=== PATIENT | male | born 1970 | race Caucasian/White ===

== ENCOUNTER 2016-12-17 08:27 | Emergency (ER) | payer SELFPAY ==
[2016-12-17 08:31] VITALS: BP 143/83; PULSE 75; RESP 20; TEMP 96.8
[2016-12-17] MEDS ORDERED: SODIUM CHLORIDE 0.9% 1,000 ML IV STA (08:35)
[2016-12-17] MEDS ORDERED: KETOROLAC 30 MG/ML 1 ML VIAL IVP STA (08:35)
--- NOTE | 2016-12-17 08:41 | ED ---
Abdominal Pain HPI - General Chief Complaint: Abdominal Pain Stated Complaint: Flank Pain Time Seen by Provider: 12/17/16 08:32 Source: patient, RN notes reviewed Mode of arrival: ambulatory Limitations: no limitations - History of Present Illness Initial Comments: 46-year-old male presents emergency Department chief complaint right flank pain. Patient states instant onset of right flank pain this morning. Patient states that the pain wraps around to his right flank region. Patient states nothing seems to make it feel better or worse. Patient states she has no history kidney stones. He's had some nausea no vomiting no diarrhea no constipation. Patient had no abdominal surgeries in the past. Patient does not take any current medications. Patient states he had no bowel movement and has no difficulty urinating. Patient denies any dysuria or known hematuria. Patient denies fever, chills. Patient denies chest pain or shortness of breath. - Related Data Home Medications Medication Instructions Recorded Confirmed Cyclobenzaprine [Flexeril] 10 mg PO DAILY PRN 12/17/16 12/17/16 Previous Rx's Medication Instructions Recorded Hydrocodone/Acetaminophen [Ringwood 1 tab PO Q6HR PRN #20 tab 12/17/16 5-325] Ondansetron Odt [Zofran Odt] 4 mg PO Q8HR PRN #10 tab 12/17/16 Allergies Allergy/AdvReac Type Severity Reaction Status Date / Time No Known Allergies Allergy Verified 12/17/16 09:14 Review of Systems ROS Statement: Those systems with pertinent positive or pertinent negative responses have been documented in the HPI. ROS Other: All systems not noted in ROS Statement are negative. Past Medical History Past Medical History: No Reported History History of Any Multi-Drug Resistant Organisms: None Reported Past Surgical History: No Surgical Hx Reported Past Psychological History: No Psychological Hx Reported Smoking Status: Never smoker Past Alcohol Use History: None Reported Past Drug Use History: None Reported General Exam Limitations: no limitations General appearance: alert, in no apparent distress Head exam: Present: atraumatic, normocephalic, normal inspection Respiratory exam: Present: normal lung sounds bilaterally. Absent: respiratory distress, wheezes, rales, rhonchi, stridor Cardiovascular Exam: Present: regular rate, normal rhythm, normal heart sounds. Absent: systolic murmur, diastolic murmur, rubs, gallop, clicks GI/Abdominal exam: Present: soft, tenderness (Minimal change in patient's reported pain over the right flank region with palpation), normal bowel sounds. Absent: distended, guarding, rebound, rigid Back exam: Present: full ROM. Absent: tenderness, CVA tenderness (R), CVA tenderness (L) Neurological exam: Present: alert. Absent: oriented X3 Skin exam: Present: warm, dry, intact, normal color. Absent: rash Course Vital Signs 12/17/16 08:30 Temperature 96.8 F L Pulse Rate 75 Respiratory 20 Rate Blood Pressure 143/83 O2 Sat by Pulse 98 Oximetry Medical Decision Making - Medical Decision Making 46-year-old male present emergency department for right flank pain. Patient has a ureteral calculi. Patient be discharged at this time. Patient is pain- free. Patient also was informed. Enlarged lymph nodes a 3 month follow-up. Patient states he will follow-up. - Lab Data Result diagrams: 12/17/16 08:55 12/17/16 08:55 Lab Results 12/17/16 12/17/16 12/17/16 Range/Units 08:55 08:55 09:20 WBC 12.8 H (3.8-10.6) k/uL RBC 5.28 (4.30-5.90) m/uL Hgb 16.0 (13.0-17.5) gm/dL Hct 45.6 (39.0-53.0) % MCV 86.4 (80.0-100.0) fL MCH 30.3 (25.0-35.0) pg MCHC 35.1 (31.0-37.0) g/dL RDW 12.7 (11.5-15.5) % Plt Count 213 (150-450) k/uL Neutrophils % 81 % Lymphocytes % 10 % Monocytes % 5 % Eosinophils % 2 % Basophils % 1 % Neutrophils # 10.4 H (1.3-7.7) k/uL Lymphocytes # 1.3 (1.0-4.8) k/uL Monocytes # 0.6 (0-1.0) k/uL Eosinophils # 0.2 (0-0.7) k/uL Basophils # 0.1 (0-0.2) k/uL Sodium 141 (137-145) mmol/L Potassium 4.6 (3.5-5.1) mmol/L Chloride 108 H (98-107) mmol/L Carbon Dioxide 21 L (22-30) mmol/L Anion Gap 12 mmol/L BUN 12 (9-20) mg/dL Creatinine 0.89 (0.66-1.25) mg/dL Est GFR (MDRD) Af Amer >60 (>60 ml/min/1.73 sqM) Est GFR (MDRD) Non-Af >60 (>60 ml/min/1.73 sqM) Glucose 113 H (74-99) mg/dL Calcium 9.0 (8.4-10.2) mg/dL Total Bilirubin 0.6 (0.2-1.3) mg/dL AST 16 L (17-59) U/L ALT 26 (21-72) U/L Alkaline Phosphatase 63 (38-126) U/L Total Protein 7.1 (6.3-8.2) g/dL Albumin 4.2 (3.5-5.0) g/dL Amylase 44 (30-110) U/L Lipase 93 (23-300) U/L Urine Color Yellow Urine Appearance Clear (Clear) Urine pH 5.5 (5.0-8.0) Ur Specific Kelley 1.013 (1.001-1.035) Urine Protein Negative (Negative) Urine Glucose (UA) Negative (Negative) Urine Ketones Negative (Negative) Urine Blood Small H (Negative) Urine Nitrate Negative (Negative) Urine Bilirubin Negative (Negative) Urine Urobilinogen <2.0 (<2.0) mg/dL Ur Leukocyte Esterase Negative (Negative) Urine RBC 3 (0-5) /hpf Urine WBC 1 (0-5) /hpf Urine Mucus Rare H (None) /hpf Disposition Clinical Impression: Ureteral calculi, Abdominal lymphadenopathy Disposition: HOME SELF-CARE Condition: Stable Instructions: Kidney Stones (ED) Additional Instructions: Please have a recheck of urine lymph node enlargement with your primary care physician.Please return to the Emergency Department if symptoms worsen or any other concerns. Prescriptions: Hydrocodone/Acetaminophen [[place]wood 5-325] 1 tab PO Q6HR PRN #20 tab PRN Reason: Pain Ondansetron Odt [Zofran Odt] 4 mg PO Q8HR PRN #10 tab PRN Reason: Nausea Referrals: None,Stated [Primary Care Provider] - 1-2 days Time of Disposition: 11:03
[2016-12-17 09:07] LABS: Basophils # (A) 0.1 k/uL (0-0.2); Basophils % (A) 1 %; CH 31.1; CHCM 36.2; Eosinophils # (A) 0.2 k/uL (0-0.7); Eosinophils % (A) 2 %; HCT 45.6 % (39.0-53.0); HDW 2.83; Luc # (Auto) 0.14; Luc % (Auto) 1; Lymphocytes # (A) 1.3 k/uL (1.0-4.8); Lymphocytes % (A) 10 %; MCH 30.3 pg (25.0-35.0); MCHC 35.1 g/dL (31.0-37.0); MCV 86.4 fL (80.0-100.0); Mean Platelet Volume 7.1; Monocytes # (A) 0.6 k/uL (0-1.0); Monocytes % (A) 5 %; Neutrophils # (A) 10.4 k/uL (1.3-7.7); Neutrophils % (A) 81 %; RBC 5.28 m/uL (4.30-5.90); RDW 12.7 % (11.5-15.5); WBC 12.8 k/uL (3.8-10.6); WBC (Perox) 12.99
--- NOTE | 2016-12-17 09:27 | XR ---
EXAMINATION TYPE: XR KUB DATE OF EXAM: 12/17/2016 9:13 AM CLINICAL DATA: 46-year-old male with right lower abdominal pain, PHH COMPARISON: None FINDINGS: Lung bases are clear. Scattered colonic gas is present. Mildly dilated small bowel loop in the mid abdomen and small air-fl uid levels in the right abdomen. No suspicious calcifications seen. IMPRESSION: 1. Overall nonobstructive bowel gas pattern at this time. No free air. 2. Mildly dilated loop of small bowel in the midabdomen and small air-fluid levels in the right abdom en. Findings could reflect an enteritis or regional ileus.
[2016-12-17 09:30] LABS: ALT 26 U/L (21-72); AST 16 U/L (17-59); Alkaline Phosphatase 63 U/L (38-126); Amylase 44 U/L (30-110); Anion Gap 12 mmol/L; Blood Urea Nitrogen 12 mg/dL (9-20); Carbon Dioxide 21 mmol/L (22-30); Chloride 108 mmol/L (98-107); Glucose 113 mg/dL (74-99); Non-African American GFR(MDRD) >60 (>60 ml/min/1.73 sqM); Potassium 4.6 mmol/L (3.5-5.1); Sodium 141 mmol/L (137-145); Total Bilirubin 0.6 mg/dL (0.2-1.3); Total Protein 7.1 g/dL (6.3-8.2)
[2016-12-17 09:43] LABS: Appearance,Urine Clear (Clear); Bilirubin,Urine Negative (Negative); Glucose,Urine (UA) Negative (Negative); Ketones,Urine Negative (Negative); Leukocyte Esterase,Urine Negative (Negative); Mucus,Urine Rare /hpf; Nitrite,Urine Negative (Negative); PH, Urine 5.5 (5.0-8.0); Particle Count 1933; Protein,Urine Negative (Negative); RBC,Urine 3 /hpf (0-5); Specific Gravity,Urine 1.013 (1.001-1.035); UA Billing (MACRO vs. MICRO) MICRO; Urobilinogen,Urine <2.0 mg/dL (<2.0); WBC,Urine 1 /hpf (0-5)
--- NOTE | 2016-12-17 10:58 | CT ---
EXAMINATION TYPE: CT abdomen pelvis wo con DATE OF EXAM: 12/17/2016 10:26 AM COMPARISON: Radiograph same day HISTORY: 46-year-old male RLQ pain CT DLP: 940 mGycm. Automated exposure control for dose reduction was used. TECHNIQUE: Contiguous axial scanning of the abdomen and pelvis without IV contrast. Coronal and sagit costa reconstructions performed. FINDINGS: Heart is normal size without pericardial effusion. Lung bases clear without pleural effusion. A few scattered subcentimeter hypodensities within the liver are too small fractured CT characterizat ion and probably represent cysts. Gallbladder, adrenal glands, left kidney, and pancreas appear within normal limits. There is mild splenomegaly at 14.8 cm on coronal series. There is mild fullness of the right renal collecting system with a punctate 2 mm calculus at the dist al right ureter, axial image 112. Nonenlarged and mildly enlarged mesenteric lymph nodes are present, particularly in the left mid abdo men measuring up to 6 mm where there is also mesenteric fat stranding. A mesenteric lymph node in the right lower quadrant measures up to 7 mm. No dilated small bowel, free fluid, or free air. Only mild scattered stool. Normal appendix. Mild circumferential bladder wall thickening is noted. Patulous left inguinal canal. Nonspecific bord steven enlarged 8 mm left external iliac chain lymph node. No abnormal fluid collection in the pelvis . Bones: No osseous destructive process. IMPRESSION: 1. Punctate 2 mm calculus distal right ureter with mild asymmetric fullness of the right renal colle cting system suggesting very low-grade ureteral obstruction. 2. Nonenlarged and mildly enlarged mesenteric lymph nodes. In the left mid abdomen, there is associa nirmala mesenteric fat stranding. Findings can be seen with mesenteric panniculitis. 3. However, given other mildly enlarged mesenteric lymph nodes and mild splenomegaly, recommend 3 mo nth follow-up exam to ensure stability/resolution as early lymphoma can have a similar appearance. 4. Mild circumferential bladder wall thickening; correlate to exclude cystitis.
== END 2016-12-17 11:09 | disposition home or self-care (01) ==
LOC: EC 08:27
DX: N20.2 Calculus of kidney with calculus of ureter (principal); R59.0 Localized enlarged lymph nodes; Z53.20 Procedure and treatment not carried out because of patient's decision for unspecified reasons
CPT/HCPCS: 36415; 74000; 74176; 80053; 81001; 82150; 83690; 85025; 96360; 96361; 99284

== ENCOUNTER 2018-12-11 13:22 | Emergency (ER) | payer OTHER ==
--- NOTE | 2018-12-11 13:40 | ED ---
General Adult HPI - General Chief complaint: Headache Stated complaint: Flu A&B Time Seen by Provider: 12/11/18 13:32 Source: patient, RN notes reviewed Mode of arrival: ambulatory Limitations: no limitations - History of Present Illness Initial comments: 48-year-old male without any significant past medical history presents to the emergency department for a chief complaint of headache 3 weeks. Patient states he was diagnosed with influenza A and B 2 to 3 weeks ago. He states he did have congestion and had a cough and fevers at that time. However patient states all symptoms have resolved besides headache and congestion. Cough is completely resolved. Patient states his symptoms from the flu should not be lasting this long. Patient has concerns of what else could be causing his headaches since other symptoms have resolved. Patient states he also feels tired. He states he does not feel back to his normal self. He denies any difficulty ambulating. He denies any confusion. Patient has no other complaints at this time including shortness of breath, chest pain, abdominal pain, nausea or vomiting, or visual changes. - Related Data Home Medications Medication Instructions Recorded Confirmed No Known Home Medications 12/11/18 12/11/18 Allergies Allergy/AdvReac Type Severity Reaction Status Date / Time No Known Allergies Allergy Verified 12/11/18 14:34 Review of Systems ROS Statement: Those systems with pertinent positive or pertinent negative responses have been documented in the HPI. ROS Other: All systems not noted in ROS Statement are negative. Past Medical History Past Medical History: No Reported History History of Any Multi-Drug Resistant Organisms: None Reported Past Surgical History: No Surgical Hx Reported Past Psychological History: No Psychological Hx Reported Smoking Status: Never smoker Past Alcohol Use History: None Reported Past Drug Use History: None Reported General Exam Limitations: no limitations General appearance: alert, in no apparent distress Head exam: Present: atraumatic, normocephalic, normal inspection Eye exam: Present: normal appearance, PERRL, EOMI. Absent: scleral icterus, conjunctival injection, periorbital swelling ENT exam: Present: normal exam, normal oropharynx, mucous membranes moist, TM's normal bilaterally, normal external ear exam Neck exam: Present: normal inspection, full ROM. Absent: tenderness, meningismus, lymphadenopathy Respiratory exam: Present: normal lung sounds bilaterally. Absent: respiratory distress, wheezes, rales, rhonchi, stridor Cardiovascular Exam: Present: regular rate, normal rhythm, normal heart sounds. Absent: systolic murmur, diastolic murmur, rubs, gallop, clicks Neurological exam: Present: alert, oriented X3, CN II-XII intact, normal gait Expanded Patient oriented to: Present: person, place, time Speech: Present: fluid speech Cranial nerves: EOM's Intact: Normal, Tongue Deviation: Normal, Nystagmus: Normal, Facial Sensation: Normal Cerebellar function: Finger to Nose: Normal, Romberg: Normal Upper motor neuron: Pronator Drift: Normal Sensory exam: Upper Extremity Light Touch: Normal, Upper Extremity Pin Prick: Normal, Lower Extremity Light Touch: Normal, Lower Extremity Pin Prick: Normal Motor strength exam: RUE: 5 (No drift), LUE: 5 (No drift), RLE: 5 (No drift), LLE: 5 (No drift) Eye Response: (4) open spontaneously Motor Response: (6) obeys commands Verbal Response: (5) oriented Leopold Total: 15 Psychiatric exam: Present: normal affect, normal mood Skin exam: Present: warm, dry, intact, normal color. Absent: rash Course Vital Signs 12/11/18 12/11/18 13:25 16:04 Temperature 98.1 F 97.7 F Pulse Rate 80 83 Respiratory 20 18 Rate Blood Pressure 129/80 133/81 O2 Sat by Pulse 99 97 Oximetry - Reevaluation(s) Reevaluation #1: 12/11/18 15:39 patient denying pain at this time Medical Decision Making - Medical Decision Making 48-year-old male presents to the emergency department for chief complaint of headaches 2-3 weeks. Patient had the flu 2-3 weeks ago when this started. He does still have congestion. I did discuss the patient that these could be symptoms related to congestion however patient is concerned there may be another pathology present as all his other symptoms have resolved. No focal neuro deficits. I did offer to do a CAT scan to further evaluate and patient agrees with this. 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 At least 2.3 x 2.4 cm. discussed results with patient that he does have a mass in his brain that needs further evaluation by neurosurgical team. Patient agrees to transfer down to [facility]. Patient was given 10 mg of Decadron. Discussed case with Dr. Bob from [facility] who accepts the transfer. Patient initially being transferred by EMS however this is now taking too long and would prefer to go by private vehicle. Sister is there and will drive him. She knows where to go and this was discussed in depth with them. - Lab Data Result diagrams: 12/11/18 14:47 12/11/18 14:47 Lab Results 12/11/18 12/11/18 Range/Units 14:47 14:47 WBC 13.7 H (3.8-10.6) k/uL RBC 5.25 (4.30-5.90) m/uL Hgb 15.6 (13.0-17.5) gm/dL Hct 45.2 (39.0-53.0) % MCV 86.1 (80.0-100.0) fL MCH 29.7 (25.0-35.0) pg MCHC 34.5 (31.0-37.0) g/dL RDW 12.5 (11.5-15.5) % Plt Count 257 (150-450) k/uL Neutrophils % 82 % Lymphocytes % 11 % Monocytes % 5 % Eosinophils % 1 % Basophils % 0 % Neutrophils # 11.2 H (1.3-7.7) k/uL Lymphocytes # 1.5 (1.0-4.8) k/uL Monocytes # 0.7 (0-1.0) k/uL Eosinophils # 0.1 (0-0.7) k/uL Basophils # 0.0 (0-0.2) k/uL Sodium 140 (137-145) mmol/L Potassium 4.6 (3.5-5.1) mmol/L Chloride 107 (98-107) mmol/L Carbon Dioxide 24 (22-30) mmol/L Anion Gap 9 mmol/L BUN 12 (9-20) mg/dL Creatinine 0.87 (0.66-1.25) mg/dL Est GFR (CKD-EPI)AfAm >90 (>60 ml/min/1.73 sqM) Est GFR (CKD-EPI)NonAf >90 (>60 ml/min/1.73 sqM) Glucose 97 (74-99) mg/dL Calcium 9.7 (8.4-10.2) mg/dL Magnesium 1.9 (1.6-2.3) mg/dL Total Bilirubin 1.0 (0.2-1.3) mg/dL AST 12 L (17-59) U/L ALT 23 (21-72) U/L Alkaline Phosphatase 57 (38-126) U/L Total Protein 7.3 (6.3-8.2) g/dL Albumin 4.6 (3.5-5.0) g/dL Disposition Clinical Impression: Intracranial mass Disposition: OTHER INSTITUTION NOT DEFINED Condition: Fair Additional Instructions: Please go directly to [facility] emergency department. Take packet there. You are a transfer to their facility by private vehicle. Is patient prescribed a controlled substance at d/c from ED?: No Referrals: None,Stated [Primary Care Provider] - 1-2 days Time of Disposition: 15:32 - Out of Hospital Transfer - Req. Specs Out of Hospital Transfer - Requested Specifics: Other Emergency Center ([facility])
[2018-12-11] MEDS ORDERED: SODIUM CHLORIDE 0.9% 1,000 ML IV STA (14:11)
[2018-12-11] MEDS ORDERED: METOCLOPRAMIDE 5 MG/ML 2 ML VIAL IVP STA (14:14)
[2018-12-11] MEDS ORDERED: diphenhydrAMINE 50 MG/ML 1 ML VIAL IVP STA (14:14)
[2018-12-11] MEDS ORDERED: BUTALB/APAP/CAFF 50-325-40MG TAB PO STA (14:14)
[2018-12-11 15:12] LABS: Basophils % (A) 0 %; Eosinophils # (A) 0.1 k/uL (0-0.7); Eosinophils % (A) 1 %; HCT 45.2 % (39.0-53.0); HGB 15.6 gm/dL (13.0-17.5); Lymphocytes # (A) 1.5 k/uL (1.0-4.8); Lymphocytes % (A) 11 %; MCH 29.7 pg (25.0-35.0); MCHC 34.5 g/dL (31.0-37.0); MCV 86.1 fL (80.0-100.0); Mean Platelet Volume 6.1; Monocytes # (A) 0.7 k/uL (0-1.0); Monocytes % (A) 5 %; Neutrophils # (A) 11.2 k/uL (1.3-7.7); Neutrophils % (A) 82 %; Platelet Count 257 k/uL (150-450); RBC 5.25 m/uL (4.30-5.90); RDW 12.5 % (11.5-15.5); WBC 13.7 k/uL (3.8-10.6)
[2018-12-11 15:13] LABS: ALT 23 U/L (21-72); AST 12 U/L (17-59); Albumin 4.6 g/dL (3.5-5.0); Alkaline Phosphatase 57 U/L (38-126); Anion Gap 9 mmol/L; Blood Urea Nitrogen 12 mg/dL (9-20); Calcium 9.7 mg/dL (8.4-10.2); Carbon Dioxide 24 mmol/L (22-30); Chloride 107 mmol/L (98-107); Glucose 97 mg/dL (74-99); Magnesium 1.9 mg/dL (1.6-2.3); Potassium 4.6 mmol/L (3.5-5.1); Sodium 140 mmol/L (137-145); Total Protein 7.3 g/dL (6.3-8.2)
--- NOTE | 2018-12-11 15:19 | CT ---
EXAMINATION TYPE: CT brain wo con DATE OF EXAM: 12/11/2018 COMPARISON: NONE HISTORY: Weakness, headache and fatigue for [address] DLP: 1142.4 mGycm. Automated Exposure Control for Dose Reduction was Utilized. TECHNIQUE: CT scan of the head is performed without contrast. FINDINGS: There is a 3.3 x 2.4 x 3.2 cm intra-axial left hemispheric mass within the parietal lynn radiata with mass effect upon the left lateral ventricle and diminutive caliber of the temporal horn of the left lateral ventricle as the vasogenic edema extends from the vertex inferiorly to the tempor al lobe. Left right midline shift is seen of 6 mm. No acute intracranial hemorrhage is noted. Globes appear unremarkable. Soft tissues are also unremarkable. Calvarium is intact with moderate mucosal th ickening of the left maxillary sinus and ethmoid sinuses. Remaining paranasal sinuses and mastoid air cells are well aerated. 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 This mass measures at least 3.3 x 2.4 cm and appear s solitary the further evaluation with MR with contrast is recommended to exclude other small masses. Findings discussed with Lizett JACOBO who will relay findings to Yony Lafleur. Findings discussed on 12/11/2018 at 1513 p.m.
[2018-12-11] MEDS ORDERED: DEXAMETHASONE SOD PHOSPHATE 10 MG/ML 1 ML VIAL IV STA (15:20)
[2018-12-11 16:57] VITALS: RESP 18
[2018-12-11 18:20] VITALS: BP 135/87; PULSE 87; TEMP 97.1
== END 2018-12-11 18:20 | disposition short-term general hospital (02) ==
LOC: EC 13:22
DX: G93.89 Other specified disorders of brain (principal); R09.89 Other specified symptoms and signs involving the circulatory and respiratory systems
CPT/HCPCS: 36415; 80053; 83735; 85025; 70450; 99285; 96374; 96375 ×2; 96361; J1200; J1100; J2765

== ENCOUNTER 2019-11-11 12:07 | Inpatient (IN) | payer OTHER ==
[2019-11-11] MEDS ORDERED: methylPREDNISolone SOD SUCCI 125 MG/2 ML VIAL IV STA (12:17)
[2019-11-11] MEDS ORDERED: IPRATROPIUM 0.5 MG/2.5 ML NEBU INHALATION STA (12:17)
[2019-11-11] MEDS ORDERED: ALBUTEROL NEBULIZED 2.5 MG/3 ML INHALATION STA (12:17)
[2019-11-11] MEDS ORDERED: ROCURONIUM BROMIDE 10 MG/ML 10 ML VIAL IV STA (12:21)
[2019-11-11] MEDS ORDERED: HYDROmorphone 1 MG/ML 1 ML SYRINGE IVP STA (12:29)
[2019-11-11] MEDS ORDERED: AZITHROMYCIN 500 MG in SODIUM CHLORIDE 0.9% 250 ML IVPB STA (12:29)
[2019-11-11] MEDS ORDERED: CEFEPIME 2 GM in SODIUM CHLORIDE 0.9% 100 ML IVPB STA (12:29)
[2019-11-11] MEDS ORDERED: VANCOMYCIN IV PER PHARMACY 1 EACH MISC MISCELLANE PRN (12:29)
--- NOTE | 2019-11-11 12:42 | ED ---
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 History of seizure disorder. Patient had reported increased dyspnea over the past 2 days. He had an outpatient x-ray from the [facility] where he resides yesterday which showed venous congestion. This morning he is presenting by EMS in severe respiratory distress and with hypoxia. He was placed on CPAP by EMS prior to arrival. History obtained from EMS and the patie nt's sister. She states she is currently being treated for his glioblastoma multiforme. Patient had apparently deteriorated in the previous 24 hours. Patient sister states that he was in his usual state of health 24-48 hours ago. She had went to visit the patient this morning at 11 AM and found that he had been transported by EMS for respiratory distress. He has history of DVT and PE and is currently on Lovenox. - Related Data Home Medications Medication Instructions Recorded Confirmed Acetaminophen Tab [Tylenol Tab] 650 mg PO Q6H PRN 11/11/19 11/11/19 Dexamethasone 2 mg PO DIRECTED 11/11/19 11/11/19 Dexamethasone [Decadron] 4 mg PO DIRECTED 11/11/19 11/11/19 Divalproex Sodium [Depakote] 500 mg PO BID 11/11/19 11/11/19 Enoxaparin [Lovenox] 80 mg SQ BID@0700,1900 11/11/19 11/11/19 Ezetimibe [Zetia] 10 mg PO DAILY@0711/11/19 11/11/19 Furosemide [Lasix] 40 mg PO DIRECTED 11/11/19 11/11/19 Lansoprazole [Prevacid] 15 mg PO DAILY@69911/11/19 11/11/19 Loperamide HCl [Imodium A-D] 2 mg PO DAILY 11/11/19 11/11/19 Melatonin 6 mg PO HS PRN 11/11/19 11/11/19 Ondansetron Odt [Zofran Odt] 8 mg PO Q8HR PRN 11/11/19 11/11/19 Potassium Chloride [Klor-Con 10] 10 meq PO DIRECTED 11/11/19 11/11/19 Tamsulosin HCl [Flomax] 0.4 mg PO DAILY 11/11/19 11/11/19 guaiFENesin [guaiFENesin Oral 100 mg PO Q6H 11/11/19 11/11/19 Solution] Allergies Allergy/AdvReac Type Severity Reaction Status Date / Time atorvastatin [From Lipitor] Allergy Unknown Verified 11/11/19 13:37 mirtazapine [From Remeron] Allergy Unknown Verified 11/11/19 13:37 Review of Systems ROS Statement: Those systems with pertinent positive or pertinent negative responses have been documented in the HPI. ROS Other: All systems not noted in ROS Statement are negative. Past Medical History Past Medical History: CVA/TIA, Deep Vein Thrombosis (DVT), Hypertension, Seizure Disorder Additional Past Medical History / Comment(s): PE, Neoplasm of brain, head injury History of Any Multi-Drug Resistant Organisms: None Reported Past Surgical History: Unable to Obtain Past Psychological History: No Psychological Hx Reported Smoking Status: Never smoker Past Alcohol Use History: None Reported Past Drug Use History: None Reported General Exam Limitations: no limitations General appearance: obtunded Head exam: Present: atraumatic, normocephalic Eye exam: Present: normal appearance, PERRL ENT exam: Present: mucous membranes dry Neck exam: Present: normal inspection. Absent: tenderness, meningismus Respiratory exam: Present: respiratory distress, wheezes, rales, rhonchi, accessory muscle use, decreased breath sounds Cardiovascular Exam: Present: normal rhythm, tachycardia GI/Abdominal exam: Present: soft, distended, other (Diffusely ecchymotic). Absent: tenderness, guarding Extremities exam: Present: pedal edema. Absent: normal capillary refill Neurological exam: Present: motor sensory deficit (NO Movement on the right. Patient localizes to pain on the left). Absent: alert, oriented X3 Skin exam: Present: warm, cyanosis. Absent: diaphoretic Course Vital Signs 11/11/19 11/11/19 11/11/19 12:12 12:43 12:59 Temperature 99.1 F Pulse Rate 114 H 126 H Respiratory 14 14 18 Rate Blood Pressure 132/96 140/105 O2 Sat by Pulse 94 L 99 Oximetry 11/11/19 11/11/19 11/11/19 13:00 13:10 13:20 Temperature Pulse Rate 122 H 133 H 115 H Respiratory 18 16 14 Rate Blood Pressure 140/105 143/100 150/140 O2 Sat by Pulse 99 94 L 96 Oximetry 11/11/19 11/11/19 11/11/19 13:30 13:47 13:50 Temperature Pulse Rate 134 H 138 H 130 H Respiratory 16 16 18 Rate Blood Pressure 140/108 137/70 137/70 O2 Sat by Pulse 95 96 97 Oximetry 11/11/19 11/11/19 11/11/19 14:00 14:15 14:30 Temperature Pulse Rate 129 H 126 H 123 H Respiratory Rate Blood Pressure 126/66 134/81 130/77 O2 Sat by Pulse 97 98 96 Oximetry 11/11/19 11/11/19 11/11/19 14:45 14:55 15:00 Temperature Pulse Rate 122 H 120 H 122 H Respiratory Rate Blood Pressure 126/78 120/75 O2 Sat by Pulse 97 97 Oximetry 11/11/19 15:24 Temperature Pulse Rate 115 H Respiratory Rate Blood Pressure O2 Sat by Pulse Oximetry - Reevaluation(s) Reevaluation #1: 11/11/19 1300 Upon arrival EMS indicates that the patient is a full code. This was confirmed prior to intubation. EKG Findings - EKG Comments: EKG Findings:: EKG, sinus tachycardia, left atrial enlargement, pulmonary disease pattern, left anterior fascicular block, rate of 135, NE interval 134, QRS duration 68, QTC 417, no ST segment elevation Procedures - Intubation Sedative: Versed Mg Given: 5 Paralytic: Rocuronium Mg Given: 50 Laryngoscope: Margie Size: 3 Assist Device Used: Bougie ET Tube Size: 7.5 ET Tube Uncuffed: No Tube Secured Depth (cm): 23 Tube Secured Location: lips Tube Placement Confirmation: visualized tube passing through cords, equal breath sounds bilaterally, no breath sounds over epigastrium, confirmation by ca pnometry Patient Tolerated Procedure: well Intubation Complications: none Medical Decision Making - Medical Decision Making 49-year-old male presenting in extremis, severe respiratory distress hypoxia. Patient was brought from extended care facility with respiratory distress. He is tachycardic and hypoxic. Decision is made to intubate this patient upon arrival is he is a full code. Workup initiated in the emergency department, chest x-ray showing right upper lobe and left lower lobe consolidation. He is initiated on broad-spectrum antibiotics. Given the patient's altered level consciousness I did perform a head CT which shows a 3 cm x 2.4 cm basal ganglion hemorrhage with surrounding vasogenic edema. There is minimal midline shift. My initial plan was to transfer this patient to [facility] where he falls with regarding his glioblastoma multiforme, I had a discussion with the neuro front office developer at [facility] Dr. Hernandez, medical record was reviewed and it was noted that the patient had a significant clot burden with right heart strain in July secondary to pulmonary embolism. We discussed the treatment options for this patient who is on Lovenox who has an intracranial hemorrhage as well as a massive pulmonary embolism. Recommendation was to treat with protamine no that this may worsen his pulmonary embolism. Patient's prognosis is very poor. Recommendation was to keep the patient at this institution for supportive care. There was no additional support that [facility] could provide, no plan for surgery no intervention for pulmonary embolism. Patient will be treated for his pneumonia, intracranial hemorrhage will be monitored. Case is discussed at length with the patient's sister and she is agreeable with plan. She does indicate that the patient should not be resuscitated if his heart were to stop. We will give this patient 24 hours of supportive care before making final decision about extubation and comfort care. I discussed case with the admitting physician Dr. Gee and the pulmonary front office developer Dr. Munguia. They are agreeable with admission. The neurologist has been consulted and has been paged. - Lab Data Result diagrams: 11/11/19 12:33 11/11/19 12:33 Lab Results 11/11/19 11/11/19 11/11/19 Range/Units 12:33 12:33 12:33 WBC 8.3 (3.8-10.6) k/uL RBC 4.85 (4.30-5.90) m/uL Hgb 15.9 (13.0-17.5) gm/dL Hct 44.2 (39.0-53.0) % MCV 91.0 (80.0-100.0) fL MCH 32.7 (25.0-35.0) pg MCHC 36.0 (31.0-37.0) g/dL RDW 14.2 (11.5-15.5) % Plt Count 140 L (150-450) k/uL Neutrophils % 67 % Lymphocytes % 22 % Monocytes % 9 % Eosinophils % 0 % Basophils % 1 % Neutrophils # 5.5 (1.3-7.7) k/uL Lymphocytes # 1.8 (1.0-4.8) k/uL Monocytes # 0.7 (0-1.0) k/uL Eosinophils # 0.0 (0-0.7) k/uL Basophils # 0.1 (0-0.2) k/uL Poikilocytosis Slight PT (9.0-12.0) sec INR (<1.2) APTT (22.0-30.0) sec Sample Site ABG pH (7.35-7.45) ABG pCO2 (35-45) mmHg ABG pO2 (83-108) mmHg ABG HCO3 (21-25) mmol/L ABG Total CO2 (19-24) mmol/L ABG O2 Saturation (94-97) % ABG Base Excess mmol/L Trev Test VBG pH (7.31-7.41) VBG pCO2 (37-51) mmHg VBG HCO3 (24-28) mmol/L FiO2 % Sodium 142 (137-145) mmol/L Potassium 3.5 (3.5-5.1) mmol/L Chloride 102 (98-107) mmol/L Carbon Dioxide 26 (22-30) mmol/L Anion Gap 14 mmol/L BUN 21 H (9-20) mg/dL Creatinine 0.63 L (0.66-1.25) mg/dL Est GFR (CKD-EPI)AfAm >90 (>60 ml/min/1.73 sqM) Est GFR (CKD-EPI)NonAf >90 (>60 ml/min/1.73 sqM) Glucose 94 (74-99) mg/dL POC Glucose (mg/dL) (75-99) mg/dL POC Glu Typewriter Mechanic ID Plasma Lactic Acid Yovany 1.2 (0.7-2.0) mmol/L Calcium 8.9 (8.4-10.2) mg/dL Magnesium 2.0 (1.6-2.3) mg/dL Total Bilirubin 1.4 H (0.2-1.3) mg/dL AST 42 (17-59) U/L ALT 105 H (4-49) U/L Alkaline Phosphatase 46 (38-126) U/L Troponin I (0.000-0.034) ng/mL NT-Pro-B Natriuret Pep pg/mL Total Protein 6.1 L (6.3-8.2) g/dL Albumin 3.5 (3.5-5.0) g/dL Urine Color Urine Appearance (Clear) Urine pH (5.0-8.0) Ur Specific [place] (1.001-1.035) Urine Protein (Negative) Urine Glucose (UA) (Negative) Urine Ketones (Negative) Urine Blood (Negative) Urine Nitrite (Negative) Urine Bilirubin (Negative) Urine Urobilinogen (<2.0) mg/dL Ur Leukocyte Esterase (Negative) Influenza Type A RNA (Not Detectd) Influenza Type B (PCR) (Not Detectd) 11/11/19 11/11/19 11/11/19 Range/Units 12:33 12:33 12:33 WBC (3.8-10.6) k/uL RBC (4.30-5.90) m/uL Hgb (13.0-17.5) gm/dL Hct (39.0-53.0) % MCV (80.0-100.0) fL MCH (25.0-35.0) pg MCHC (31.0-37.0) g/dL RDW (11.5-15.5) % Plt Count (150-450) k/uL Neutrophils % % Lymphocytes % % Monocytes % % Eosinophils % % Basophils % % Neutrophils # (1.3-7.7) k/uL Lymphocytes # (1.0-4.8) k/uL Monocytes # (0-1.0) k/uL Eosinophils # (0-0.7) k/uL Basophils # (0-0.2) k/uL Poikilocytosis PT 10.0 (9.0-12.0) sec INR 1.0 (<1.2) APTT 22.2 (22.0-30.0) sec Sample Site ABG pH (7.35-7.45) ABG pCO2 (35-45) mmHg ABG pO2 (83-108) mmHg ABG HCO3 (21-25) mmol/L ABG Total CO2 (19-24) mmol/L ABG O2 Saturation (94-97) % ABG Base Excess mmol/L Trev Test VBG pH (7.31-7.41) VBG pCO2 (37-51) mmHg VBG HCO3 (24-28) mmol/L FiO2 % Sodium (137-145) mmol/L Potassium (3.5-5.1) mmol/L Chloride (98-107) mmol/L Carbon Dioxide (22-30) mmol/L Anion Gap mmol/L BUN (9-20) mg/dL Creatinine (0.66-1.25) mg/dL Est GFR (CKD-EPI)AfAm (>60 ml/min/1.73 sqM) Est GFR (CKD-EPI)NonAf (>60 ml/min/1.73 sqM) Glucose (74-99) mg/dL POC Glucose (mg/dL) (75-99) mg/dL POC Glu Typewriter Mechanic ID Plasma Lactic Acid Yovany (0.7-2.0) mmol/L Calcium (8.4-10.2) mg/dL Magnesium (1.6-2.3) mg/dL Total Bilirubin (0.2-1.3) mg/dL AST (17-59) U/L ALT (4-49) U/L Alkaline Phosphatase (38-126) U/L Troponin I <0.012 (0.000-0.034) ng/mL NT-Pro-B Natriuret Pep 69 pg/mL Total Protein (6.3-8.2) g/dL Albumin (3.5-5.0) g/dL Urine Color Urine Appearance (Clear) Urine pH (5.0-8.0) Ur Specific [place] (1.001-1.035) Urine Protein (Negative) Urine Glucose (UA) (Negative) Urine Ketones (Negative) Urine Blood (Negative) Urine Nitrite (Negative) Urine Bilirubin (Negative) Urine Urobilinogen (<2.0) mg/dL Ur Leukocyte Esterase (Negative) Influenza Type A RNA (Not Detectd) Influenza Type B (PCR) (Not Detectd) 11/11/19 11/11/19 11/11/19 Range/Units 12:33 12:44 12:44 WBC (3.8-10.6) k/uL RBC (4.30-5.90) m/uL Hgb (13.0-17.5) gm/dL Hct (39.0-53.0) % MCV (80.0-100.0) fL MCH (25.0-35.0) pg MCHC (31.0-37.0) g/dL RDW (11.5-15.5) % Plt Count (150-450) k/uL Neutrophils % % Lymphocytes % % Monocytes % % Eosinophils % % Basophils % % Neutrophils # (1.3-7.7) k/uL Lymphocytes # (1.0-4.8) k/uL Monocytes # (0-1.0) k/uL Eosinophils # (0-0.7) k/uL Basophils # (0-0.2) k/uL Poikilocytosis PT (9.0-12.0) sec INR (<1.2) APTT (22.0-30.0) sec Sample Site ABG pH (7.35-7.45) ABG pCO2 (35-45) mmHg ABG pO2 (83-108) mmHg ABG HCO3 (21-25) mmol/L ABG Total CO2 (19-24) mmol/L ABG O2 Saturation (94-97) % ABG Base Excess mmol/L Trev Test VBG pH 7.51 H (7.31-7.41) VBG pCO2 32 L (37-51) mmHg VBG HCO3 26 (24-28) mmol/L FiO2 % Sodium (137-145) mmol/L Potassium (3.5-5.1) mmol/L Chloride (98-107) mmol/L Carbon Dioxide (22-30) mmol/L Anion Gap mmol/L BUN (9-20) mg/dL Creatinine (0.66-1.25) mg/dL Est GFR (CKD-EPI)AfAm (>60 ml/min/1.73 sqM) Est GFR (CKD-EPI)NonAf (>60 ml/min/1.73 sqM) Glucose (74-99) mg/dL POC Glucose (mg/dL) (75-99) mg/dL POC Glu Typewriter Mechanic ID Plasma Lactic Acid Yovany (0.7-2.0) mmol/L Calcium (8.4-10.2) mg/dL Magnesium (1.6-2.3) mg/dL Total Bilirubin (0.2-1.3) mg/dL AST (17-59) U/L ALT (4-49) U/L Alkaline Phosphatase (38-126) U/L Troponin I (0.000-0.034) ng/mL NT-Pro-B Natriuret Pep pg/mL Total Protein (6.3-8.2) g/dL Albumin (3.5-5.0) g/dL Urine Color Yellow Urine Appearance Clear (Clear) Urine pH 6.5 (5.0-8.0) Ur Specific [place] 1.026 (1.001-1.035) Urine Protein Trace H (Negative) Urine Glucose (UA) Negative (Negative) Urine Ketones 1+ H (Negative) Urine Blood Negative (Negative) Urine Nitrite Negative (Negative) Urine Bilirubin Negative (Negative) Urine Urobilinogen >12.0 (<2.0) mg/dL Ur Leukocyte Esterase Negative (Negative) Influenza Type A RNA Not Detected (Not Detectd) Influenza Type B (PCR) Not Detected (Not Detectd) 11/11/19 11/11/19 Range/Units 12:47 12:56 WBC (3.8-10.6) k/uL RBC (4.30-5.90) m/uL Hgb (13.0-17.5) gm/dL Hct (39.0-53.0) % MCV (80.0-100.0) fL MCH (25.0-35.0) pg MCHC (31.0-37.0) g/dL RDW (11.5-15.5) % Plt Count (150-450) k/uL Neutrophils % % Lymphocytes % % Monocytes % % Eosinophils % % Basophils % % Neutrophils # (1.3-7.7) k/uL Lymphocytes # (1.0-4.8) k/uL Monocytes # (0-1.0) k/uL Eosinophils # (0-0.7) k/uL Basophils # (0-0.2) k/uL Poikilocytosis PT (9.0-12.0) sec INR (<1.2) APTT (22.0-30.0) sec Sample Site rrad ABG pH 7.49 H (7.35-7.45) ABG pCO2 37 (35-45) mmHg ABG pO2 239 H (83-108) mmHg ABG HCO3 28 H (21-25) mmol/L ABG Total CO2 29 H (19-24) mmol/L ABG O2 Saturation 100.0 H (94-97) % ABG Base Excess 4.3 mmol/L Trev Test Yes VBG pH (7.31-7.41) VBG pCO2 (37-51) mmHg VBG HCO3 (24-28) mmol/L FiO2 100 % Sodium (137-145) mmol/L Potassium (3.5-5.1) mmol/L Chloride (98-107) mmol/L Carbon Dioxide (22-30) mmol/L Anion Gap mmol/L BUN (9-20) mg/dL Creatinine (0.66-1.25) mg/dL Est GFR (CKD-EPI)AfAm (>60 ml/min/1.73 sqM) Est GFR (CKD-EPI)NonAf (>60 ml/min/1.73 sqM) Glucose (74-99) mg/dL POC Glucose (mg/dL) 104 H (75-99) mg/dL POC Glu Typewriter Mechanic ID Ashlyn Lundberg Plasma Lactic Acid Yovany (0.7-2.0) mmol/L Calcium (8.4-10.2) mg/dL Magnesium (1.6-2.3) mg/dL Total Bilirubin (0.2-1.3) mg/dL AST (17-59) U/L ALT (4-49) U/L Alkaline Phosphatase (38-126) U/L Troponin I (0.000-0.034) ng/mL NT-Pro-B Natriuret Pep pg/mL Total Protein (6.3-8.2) g/dL Albumin (3.5-5.0) g/dL Urine Color Urine Appearance (Clear) Urine pH (5.0-8.0) Ur Specific [place] (1.001-1.035) Urine Protein (Negative) Urine Glucose (UA) (Negative) Urine Ketones (Negative) Urine Blood (Negative) Urine Nitrite (Negative) Urine Bilirubin (Negative) Urine Urobilinogen (<2.0) mg/dL Ur Leukocyte Esterase (Negative) Influenza Type A RNA (Not Detectd) Influenza Type B (PCR) (Not Detectd) Critical Care Time Critical Care Time: Yes Total Critical Care Time: 95 Disposition Clinical Impression: HCAP (healthcare-associated pneumonia), ICH (intracerebral hemorrhage), Pulmonary embolism, Sepsis with acute hypoxic respiratory failure Disposition: ADMITTED IP TO THIS HOSP Condition: Critical Is patient prescribed a controlled substance at d/c from ED?: No Referrals: Andres Sharpe MD [Primary Care Provider] - 1-2 days Decision to Admit Reason: Admit from EC Decision Date: 11/11/19 Decision Time: 16:11
--- NOTE | 2019-11-11 12:47 | XR ---
EXAMINATION TYPE: XR chest 1V portable DATE OF EXAM: 11/11/2019 COMPARISON: NONE HISTORY: Difficulty breathing TECHNIQUE: Single frontal view of the chest is obtained. FINDINGS: There is a near complete right upper lobe consolidation or collapse. ET tube seen approxim ately 3 cm above the chris and NG tube noted. Left basilar infiltrate seen. No pneumothorax. Heart i s mildly enlarged. IMPRESSION: 1. ET tube approximately 3 cm above the chris. Large area of right upper lobe consolidation, collaps e or neoplastic process in the differential diagnosis. 2. Left lower lobe infiltrate
[2019-11-11 12:49] LABS: Glucose,Whole Blood 104 mg/dL (75-99)
[2019-11-11 12:55] LABS: VBG PH 7.51 (7.31-7.41)
[2019-11-11] MEDS ORDERED: VANCOMYCIN 1,500 MG in SODIUM CHLORIDE 0.9% 250 ML IVPB ONE (13:00)
[2019-11-11 13:01] LABS: ABG Base Excess 4.3 mmol/L; ABG HCO3 28 mmol/L (21-25); ABG PCO2 37 mmHg (35-45); ABG PH 7.49 (7.35-7.45); ABG PO2 239 mmHg (83-108); ABG TCO2 29 mmol/L (19-24); Allen Test Performed? Yes
[2019-11-11 13:04] LABS: Basophils # (A) 0.1 k/uL (0-0.2); Basophils % (A) 1 %; Eosinophils % (A) 0 %; HCT 44.2 % (39.0-53.0); HGB 15.9 gm/dL (13.0-17.5); Lymphocytes # (A) 1.8 k/uL (1.0-4.8); Lymphocytes % (A) 22 %; MCH 32.7 pg (25.0-35.0); Mean Platelet Volume 7.3; Monocytes # (A) 0.7 k/uL (0-1.0); Monocytes % (A) 9 %; Neutrophils # (A) 5.5 k/uL (1.3-7.7); Neutrophils % (A) 67 %; Platelet Count 140 k/uL (150-450); Poikilocytosis Slight; RBC 4.85 m/uL (4.30-5.90); RDW 14.2 % (11.5-15.5); WBC 8.3 k/uL (3.8-10.6)
[2019-11-11] MEDS ORDERED: PROPOFOL 1,000 MG in EMPTY BAG 1 BAG IV ONE (13:05)
[2019-11-11 13:09] LABS: ALT 105 U/L (4-49); AST 42 U/L (17-59); African American GFR (CKD) >90 (>60 ml/min/1.73 sqM); Albumin 3.5 g/dL (3.5-5.0); Alkaline Phosphatase 46 U/L (38-126); Anion Gap 14 mmol/L; Blood Urea Nitrogen 21 mg/dL (9-20); Calcium 8.9 mg/dL (8.4-10.2); Carbon Dioxide 26 mmol/L (22-30); Chloride 102 mmol/L (98-107); Glucose 94 mg/dL (74-99); Non-African American GFR(CKD) >90 (>60 ml/min/1.73 sqM); Potassium 3.5 mmol/L (3.5-5.1); Sodium 142 mmol/L (137-145); Total Bilirubin 1.4 mg/dL (0.2-1.3); Total Protein 6.1 g/dL (6.3-8.2)
[2019-11-11] MEDS ORDERED: MIDAZOLAM 1 MG/ML 5 ML VIAL IV STA (13:18)
[2019-11-11 13:21] LABS: Partial Thromboplastin Time 22.2 sec (22.0-30.0)
[2019-11-11] MEDS ORDERED: LORazepam 2 MG/ML INJ IV STA (13:29)
[2019-11-11 13:34] LABS: Appearance,Urine Clear (Clear); Bilirubin,Urine Negative (Negative); Blood,Urine Negative (Negative); Color,Urine Yellow; Glucose,Urine (UA) Negative (Negative); Ketones,Urine 1+ (Negative); Leukocyte Esterase,Urine Negative (Negative); Nitrite,Urine Negative (Negative); PH, Urine 6.5 (5.0-8.0); Protein,Urine Trace (Negative); Specific Gravity,Urine 1.026 (1.001-1.035); Urobilinogen,Urine >12.0 mg/dL (<2.0)
[2019-11-11] MEDS ORDERED: DEXAMETHASONE SOD PHOSPHATE 10 MG/ML 1 ML VIAL IV STA (13:57)
[2019-11-11] MEDS ORDERED: PROTAMINE SULFATE 10 MG/ML 5 ML VIAL IV STA (14:02)
--- NOTE | 2019-11-11 14:04 | CT ---
EXAMINATION TYPE: CT brain wo con DATE OF EXAM: 11/11/2019 COMPARISON: 12/11/2018 HISTORY: AMS, history of glioblastoma multiform CT DLP: 1113.[address] of the brain was performed. There is acute intraparenchymal hemorrhage noted in the region of the right basal ganglia measuring 3 .0 x 2.4 cm. Mild mass effect upon the right lateral ventricle and right frontal horn without evidenc e for herniation at this time. No additional areas of acute hemorrhage are identified. There appears to be residual lesion in the region of the left thalamus measuring 1.7 cm which may ref lect the site of patient's known glioblastoma. There is surrounding vasogenic edema. Overall appearan ce is improved relative to prior examination however. Osseous calvarium is intact. Left maxillary sinus mucosal thickening. If symptoms persist consider MRI as clinically warranted. IMPRESSION: 1. Acute intraparenchymal hemorrhage right basal ganglia as discussed above. 2. Residual lesion left thalamic region with surrounding vasogenic edema again noted although much im proved relative to prior study. Comment: Findings discussed with ER physician at the time of exam completion on 11/11/2019 at 2:00 PM
[2019-11-11] MEDS ORDERED: SODIUM CHLORIDE 0.9% 500 ML 500 ML IV ONE (14:05)
[2019-11-11] MEDS ORDERED: SODIUM CHLORIDE 0.9% 1,000 ML IV SCH (14:15)
[2019-11-11] MEDS ORDERED: NALOXONE 0.4 MG/ML 1 ML VIAL IV PRN (16:01)
[2019-11-11] MEDS ORDERED: ACETAMINOPHEN SUPPOSITORY 650 MG SUPP RECTAL PRN (16:01)
[2019-11-11] MEDS ORDERED: HYDROmorphone 0.5 MG/0.5 ML SYRINGE IVP PRN (16:01)
--- NOTE | 2019-11-11 17:19 | P.CNNES ---
History of Present Illness Consult date: 11/11/19 Requesting physician: Carlos Singletary Reason for Consult: Glioblastoma multiform, intracranial hemorrhage History of Present Illness: Patient is a 49-year-old male, who has history of glioblastoma multiform involving left hemispheric region with spastic hemiplegia on the right side, seizure disorder, had increased difficulty breathing over the past 2 days. He lives at long-term care facility where he gets chest x-ray done which revealed venous congestion. This morning his respiratory distress Court worse. He was placed on CPAP by EMS. Patient has history of DVT and PE, currently on Lovenox, full anticoagulation dose of 80 mg twice a day. Patient in the ER underwent computed tomography scan of the head, which revealed acute intraparenchymal hemorrhage right basal ganglia measuring 3 x 2.4 cm. Mild mass effect upon the right lateral ventricle and right frontal horn without evidence for herniation. Residual lesion left thalamic region with surrounding vasogenic edema again noted although much improved relative to prior study. EKG showed sinus tachycardia. Chest x-ray showed ET tube, large area of right upper lobe consolidation, collapse or new plastic process. Left lower lobe infiltrate. P atient was being considered for transfer to [facility], but family is considering close observation and then if no improvement in 24 hours, then may recommend comfort care. Patient's platelets are 140, PT/PTT normal, Chem-7 normal. AST is 42, ALT 105. Review of Systems ROS unobtainable: due to endotracheal tube, due to mental status Past Medical History Past Medical History: CVA/TIA, Deep Vein Thrombosis (DVT), Hypertension, Seizure Disorder Additional Past Medical History / Comment(s): PE, Neoplasm of brain, head injury History of Any Multi-Drug Resistant Organisms: None Reported Past Surgical History: Unable to Obtain Past Psychological History: No Psychological Hx Reported Smoking Status: Never smoker Past Alcohol Use History: None Reported Past Drug Use History: None Reported Medications and Allergies Home Medications Medication Instructions Recorded Confirmed Type Acetaminophen Tab [Tylenol Tab] 650 mg PO Q6H PRN 11/11/19 11/11/19 History Dexamethasone 2 mg PO DIRECTED 11/11/19 11/11/19 History Dexamethasone [Decadron] 4 mg PO DIRECTED 11/11/19 11/11/19 History Divalproex Sodium [Depakote] 500 mg PO BID 11/11/19 11/11/19 History Enoxaparin [Lovenox] 80 mg SQ BID@0700,1900 11/11/19 11/11/19 History Ezetimibe [Zetia] 10 mg PO DAILY@0700 11/11/19 11/11/19 History Furosemide [Lasix] 40 mg PO DIRECTED 11/11/19 11/11/19 History Lansoprazole [Prevacid] 15 mg PO DAILY@0700 11/11/19 11/11/19 History Loperamide HCl [Imodium A-D] 2 mg PO DAILY 11/11/19 11/11/19 History Melatonin 6 mg PO HS PRN 11/11/19 11/11/19 History Ondansetron Odt [Zofran Odt] 8 mg PO Q8HR PRN 11/11/19 11/11/19 History Potassium Chloride [Klor-Con 10] 10 meq PO DIRECTED 11/11/19 11/11/19 History Tamsulosin HCl [Flomax] 0.4 mg PO DAILY 11/11/19 11/11/19 History guaiFENesin [guaiFENesin Oral 100 mg PO Q6H 11/11/19 11/11/19 History Solution] Allergies Allergy/AdvReac Type Severity Reaction Status Date / Time atorvastatin [From Lipitor] Allergy Unknown Verified 11/11/19 13:37 mirtazapine [From Remeron] Allergy Unknown Verified 11/11/19 13:37 Physical Examination - Vital Signs Vital Signs: Vital Signs Temp Pulse Resp BP Pulse Ox 11/11/19 16:00 112 H 18 126/77 98 11/11/19 15:45 113 H 18 117/74 98 11/11/19 15:30 114 H 18 123/78 99 11/11/19 15:24 115 H 11/11/19 15:15 118 H 20 122/75 96 11/11/19 15:00 122 H 120/75 97 11/11/19 14:55 120 H 11/11/19 14:45 122 H 126/78 97 11/11/19 14:30 123 H 130/77 96 11/11/19 14:15 126 H 134/81 98 11/11/19 14:00 129 H 126/66 97 11/11/19 13:50 130 H 18 137/70 97 11/11/19 13:47 138 H 16 137/70 96 11/11/19 13:30 134 H 16 140/108 95 11/11/19 13:20 115 H 14 150/140 96 11/11/19 13:10 133 H 16 143/100 94 L 11/11/19 13:00 122 H 18 140/105 99 11/11/19 12:59 126 H 18 140/105 99 11/11/19 12:43 14 11/11/19 12:12 99.1 F 114 H 14 132/96 94 L Intake and Output 11/11/19 11/11/19 11/11/19 06:59 14:59 22:59 Intake Total 0.518 Output Total 250 Balance -249.482 Intake: Intake, IV Titration 0.518 Amount Propofol 1,000 mg In 0.518 Empty Bag 1 bag @ Titrate IV .Q0M ONE Rx#: [id number] Output: Urine 250 Uretheral (Ramirez) 250 Other: Weight 79.742 kg On examination patient is a middle aged male, who is intubated, sedated. Patient's pupils are about 3 mm, barely reacting. Both pupils are equal and round. Oculocephalics are absent. Patient has obvious right spastic hemiplegia. Patient's left side also difficult to assess because of mental status. Patient does have bilateral Babinski, but has sustained clonus on the right. Sensory cerebellar functions could not be tested. No obvious seizure activity noted. Results - Laboratory Findings CBC and BMP: 11/11/19 12:33 11/11/19 12:33 Abnormal Lab Findings: Abnormal Labs 11/11/19 11/11/19 11/11/19 12:33 12:33 12:33 Plt Count 140 L ABG pH ABG pO2 ABG HCO3 ABG Total CO2 ABG O2 Saturation VBG pH 7.51 H VBG pCO2 32 L BUN 21 H Creatinine 0.63 L POC Glucose (mg/dL) Total Bilirubin 1.4 H ALT 105 H Total Protein 6.1 L Urine Protein Urine Ketones 11/11/19 11/11/19 11/11/19 12:44 12:47 12:56 Plt Count ABG pH 7.49 H ABG pO2 239 H ABG HCO3 28 H ABG Total CO2 29 H ABG O2 Saturation 100.0 H VBG pH VBG pCO2 BUN Creatinine POC Glucose (mg/dL) 104 H Total Bilirubin ALT Total Protein Urine Protein Trace H Urine Ketones 1+ H Assessment and Plan Assessment: * Acute right basal ganglionic hemorrhage, at least moderate size with some mass effect. * History of glioblastoma multiform, involving left hemispheric region, with chronic right hemiparesis. * History of DVT and PE. * Obesity. Plan: * Patient's prognosis appears poor based upon presence of bilateral hemiparesis (chronic right, and acute left side), and malignant brain tumor GBM. * Patient also has recent history of DVT and PE. Lovenox has been reversed with protamine sulfate. Patient is at risk of recurrent DVT. * Supportive care.
[2019-11-11 17:35] LABS: Glucose,Whole Blood 153 mg/dL (75-99)
[2019-11-11] MEDS: DEXTROSE 5%-0.9% NACL 1,000 ML IV SCH (18:32)
[2019-11-11] MEDS: PROPOFOL 1,000 MG in EMPTY BAG 1 BAG IV SCH ×2 (18:41→22:26)
--- NOTE | 2019-11-11 21:56 | P.HPIM ---
History of Present Illness H&P Date: 11/11/19 Chief Complaint: Shortness of breath Patient is a 49-year-old male with a known history of glioblastoma status post surgery at [facility], right-sided paralysis, history of PE currently on anticoagulation with Lovenox, seizure disorder was transferred from [facility] due to worsening shortness of breath and respiratory distress. As per the patient's sister, patient developed short of breath on Friday and was given breathing treatments and cough syrup while at custodial. Patient's sister went to visit the patient at custodial around 11 AM today. Patient became more lethargic today and was having severe respiratory distress with hypoxia. EMS was called and patient was transferred to ER. Patient was placed on CPAP by EMS. Patient underwent CT of the head which revealed acute intraparenchymal hemorrhage right basilar ganglia measuring 3 x 2.4 cm. Mild mass effect upon the right lateral ventricle and right frontal horn without evidence of la nena iation. Residual lesion left thalamic region with surrounding vasogenic edema again noted although much improvement related to prior study. Patient was given protamine in the ER. Patient was intubated and is currently on mechanical ventilator. Chest x-ray showed ET tube, large area of right upper lobe consolidation, collapse or neoplastic process. Left lower lobe infiltrate. History was taken from the medical chart and patient's sister at bedside. Laboratory data reviewed. UA negative for infection. Influenza negative. Review of Systems Complete review of systems could not be obtained from the patient. Past Medical History Past Medical History: CVA/TIA, Deep Vein Thrombosis (DVT), Hypertension, Seizure Disorder Additional Past Medical History / Comment(s): PE, Neoplasm of brain, head injury History of Any Multi-Drug Resistant Organisms: None Reported Past Surgical History: Unable to Obtain Past Psychological History: No Psychological Hx Reported Smoking Status: Never smoker Past Alcohol Use History: None Reported Past Drug Use History: None Reported Medications and Allergies Home Medications Medication Instructions Recorded Confirmed Type Acetaminophen Tab [Tylenol Tab] 650 mg PO Q6H PRN 11/11/19 11/11/19 History Dexamethasone 2 mg PO DIRECTED 11/11/19 11/11/19 History Dexamethasone [Decadron] 4 mg PO DIRECTED 11/11/19 11/11/19 History Divalproex Sodium [Depakote] 500 mg PO BID 11/11/19 11/11/19 History Enoxaparin [Lovenox] 80 mg SQ BID@0700,1900 11/11/19 11/11/19 History Ezetimibe [Zetia] 10 mg PO DAILY@0700 11/11/19 11/11/19 History Furosemide [Lasix] 40 mg PO DIRECTED 11/11/19 11/11/19 History Lansoprazole [Prevacid] 15 mg PO DAILY@0700 11/11/19 11/11/19 History Loperamide HCl [Imodium A-D] 2 mg PO DAILY 11/11/19 11/11/19 History Melatonin 6 mg PO HS PRN 11/11/19 11/11/19 History Ondansetron Odt [Zofran Odt] 8 mg PO Q8HR PRN 11/11/19 11/11/19 History Potassium Chloride [Klor-Con 10] 10 meq PO DIRECTED 11/11/19 11/11/19 History Tamsulosin HCl [Flomax] 0.4 mg PO DAILY 11/11/19 11/11/19 History guaiFENesin [guaiFENesin Oral 100 mg PO Q6H 11/11/19 11/11/19 History Solution] Allergies Allergy/AdvReac Type Severity Reaction Status Date / Time atorvastatin [From Lipitor] Allergy Unknown Verified 11/11/19 13:37 mirtazapine [From Remeron] Allergy Unknown Verified 11/11/19 13:37 Physical Exam Vitals: Vital Signs Temp Pulse Resp BP Pulse Ox 11/11/19 19:00 109 H 18 101/61 98 11/11/19 18:00 98 F 113 H 18 125/92 98 11/11/19 16:00 112 H 18 126/77 98 11/11/19 15:45 113 H 18 117/74 98 11/11/19 15:30 114 H 18 123/78 99 11/11/19 15:24 115 H 11/11/19 15:15 118 H 20 122/75 96 11/11/19 15:00 122 H 120/75 97 11/11/19 14:55 120 H 11/11/19 14:45 122 H 126/78 97 11/11/19 14:30 123 H 130/77 96 11/11/19 14:15 126 H 134/81 98 11/11/19 14:00 129 H 126/66 97 11/11/19 13:50 130 H 18 137/70 97 11/11/19 13:47 138 H 16 137/70 96 11/11/19 13:30 134 H 16 140/108 95 11/11/19 13:20 115 H 14 150/140 96 11/11/19 13:10 133 H 16 143/100 94 L 11/11/19 13:00 122 H 18 140/105 99 11/11/19 12:59 126 H 18 140/105 99 11/11/19 12:43 14 11/11/19 12:12 99.1 F 114 H 14 132/96 94 L Intake and Output 11/11/19 11/11/19 11/11/19 06:59 14:59 22:59 Intake Total 0.518 550 Output Total 250 290 Balance -249.482 260 Intake: IV 550 Dextrose 5%-0.9% NaCl 1, 300 000 ml @ 100 mls/hr IV . Q10H [facility] Rx#:[id number] Vancomycin 1,500 mg In 250 Sodium Chloride 0.9% 250 ml @ 125 mls/hr IVPB ONCE ONE Rx#:[id number] Intake, IV Titration 0.518 Amount Propofol 1,000 mg In 0.518 Empty Bag 1 bag @ Titrate IV .Q0M ONE Rx#: [id number] Output: Urine 250 290 Uretheral (Ramirez) 250 Other: Weight 79.742 kg PHYSICAL EXAMINATION: Patient is currently on mechanical ventilator. Does not respond to verbal stimuli... HEENT: Normocephalic. Neck is supple. Pupils reactive. Nostrils clear. Oral cavity is moist. Ears reveal no drainage. Neck reveals no JVD, carotid bruits, or thyromegaly. CHEST EXAMINATION: Trachea is central. Symmetrical expansion. Bilateral diffuse coarse breath sounds and crackles. CARDIAC: Normal S1, S2 with no gallops. No murmurs ABDOMEN: Soft. Bowel sounds normal. No organomegaly. No abdominal bruits. Extremities: reveal no edema. No clubbing or cyanosis Neurologically . Patient is currently intubated. Skin: No rash or skin lesions. Psychiatric: Could not be assessed. Musculoskeletal: No joint swelling or deformity. Results CBC & Chem 7: 11/11/19 12:33 11/11/19 12:33 Labs: Abnormal Lab Results - Last 24 Hours (Table) 11/11/19 11/11/19 11/11/19 Range/Units 12:33 12:33 12:33 Plt Count 140 L (150-450) k/uL ABG pH (7.35-7.45) ABG pO2 (83-108) mmHg ABG HCO3 (21-25) mmol/L ABG Total CO2 (19-24) mmol/L ABG O2 Saturation (94-97) % VBG pH 7.51 H (7.31-7.41) VBG pCO2 32 L (37-51) mmHg BUN 21 H (9-20) mg/dL Creatinine 0.63 L (0.66-1.25) mg/dL POC Glucose (mg/dL) (75-99) mg/dL Total Bilirubin 1.4 H (0.2-1.3) mg/dL ALT 105 H (4-49) U/L Total Protein 6.1 L (6.3-8.2) g/dL Urine Protein (Negative) Urine Ketones (Negative) 11/11/19 11/11/19 11/11/19 Range/Units 12:44 12:47 12:56 Plt Count (150-450) k/uL ABG pH 7.49 H (7.35-7.45) ABG pO2 239 H (83-108) mmHg ABG HCO3 28 H (21-25) mmol/L ABG Total CO2 29 H (19-24) mmol/L ABG O2 Saturation 100.0 H (94-97) % VBG pH (7.31-7.41) VBG pCO2 (37-51) mmHg BUN (9-20) mg/dL Creatinine (0.66-1.25) mg/dL POC Glucose (mg/dL) 104 H (75-99) mg/dL Total Bilirubin (0.2-1.3) mg/dL ALT (4-49) U/L Total Protein (6.3-8.2) g/dL Urine Protein Trace H (Negative) Urine Ketones 1+ H (Negative) 11/11/19 Range/Units 17:33 Plt Count (150-450) k/uL ABG pH (7.35-7.45) ABG pO2 (83-108) mmHg ABG HCO3 (21-25) mmol/L ABG Total CO2 (19-24) mmol/L ABG O2 Saturation (94-97) % VBG pH (7.31-7.41) VBG pCO2 (37-51) mmHg BUN (9-20) mg/dL Creatinine (0.66-1.25) mg/dL POC Glucose (mg/dL) 153 H (75-99) mg/dL Total Bilirubin (0.2-1.3) mg/dL ALT (4-49) U/L Total Protein (6.3-8.2) g/dL Urine Protein (Negative) Urine Ketones (Negative) Thrombosis Risk Factor Assmnt - DVT/VTE Prophylaxis DVT/VTE Prophylaxis: Mechanical Prophylaxis ordered Assessment and Plan Assessment: Acute hypoxic respiratory failure requiring mechanical ventilator. Acute right basilar ganglionic moderate sized hemorrhage with mass affect Multifocal pneumonia with sepsis History of glioblastoma multiformae with chronic right hemiparesis History of DVT and PE currently on Lovenox at custodial Obesity with BMI 30.2 CODE STATUS DO NOT RESUSCITATE/DO NOT INTUBATE Plan: Currently on mechanical ventilator. Patient is being continued on antibiotics and was given Decadron IV in the ER. Patient was given protamine to reverse Lovenox anticoagulation. Prognosis is poor due to chronic right-sided hemiparesthesia and acute left-sided weakness and intracranial hemorrhage along with malignant brain tumor GBM Family would like close observation for another 24 hours and if no improvement, will consider comfort care. Prognosis at this time. Time with Patient: Greater than 30
[2019-11-11] MEDS: VANCOMYCIN 1,500 MG in SODIUM CHLORIDE 0.9% 250 ML IVPB SCH (22:22)
[2019-11-11] MEDS: CHLORHEXIDINE GLUCONATE 15 ML CUP MUCOUS MEM SCH (22:26)
[2019-11-12] MEDS: DEXTROSE 5%-0.9% NACL 1,000 ML IV SCH ×2 (05:13→13:19)
[2019-11-12 05:23] LABS: ABG Base Excess 2.8 mmol/L; ABG HCO3 26 mmol/L (21-25); ABG Oxygen Saturation 99.4 % (94-97); ABG PCO2 36 mmHg (35-45); ABG PH 7.47 (7.35-7.45); ABG PO2 150 mmHg (83-108); ABG TCO2 28 mmol/L (19-24); Allen Test Performed? Yes
[2019-11-12] MEDS: VANCOMYCIN 1,500 MG in SODIUM CHLORIDE 0.9% 250 ML IVPB SCH ×2 (06:21→14:34)
[2019-11-12] MEDS: PROPOFOL 1,000 MG in EMPTY BAG 1 BAG IV SCH ×2 (06:25→12:54)
[2019-11-12] MEDS: CHLORHEXIDINE GLUCONATE 15 ML CUP MUCOUS MEM SCH (08:20)
[2019-11-12 09:13] VITALS: TEMP 98.2
--- NOTE | 2019-11-12 11:00 | CONS ---
CONSULTATION PULMONARY/CRITICAL CARE CONSULTATION: DATE OF SERVICE: 11/12/2019 This is a patient who presented to the emergency room via EMS. He apparently came in with complaints of shortness of breath. The patient has a history of glioblastoma multiform. He also has a previous history of hemiplegic stroke involving the right side of his body. In addition, he has history of seizure disorder. He apparently was found to have increasing shortness of breath over 2 days prior to admission. He apparently had a chest x-ray at an outpatient facility and apparently showed pulmonary venous congestion. He apparently presented early in the morning on 11/11 with increasing respiratory distress and hypoxemia. He was placed on CPAP by EMS prior to arrival. The patient is currently being treated for his glioblastoma multiform at [facility]. In the last 24 hours, he has clearly deteriorated. He also has a history of recent DVT and pulmonary embolism. Apparently [facility] was called last night for transfer. They refused to take the patient in transfer as they thought that there was nothing more that could be done. The CT of the brain showed a large intraparenchymal hemorrhage. Obviously, he will not be able to receive the blood thinners for his PE given the intraparenchymal hemorrhage. The family apparently is considering comfort measures. The patient is a DO NOT RESUSCITATE. HOME MEDICATIONS: Reviewed. They include Tylenol, dexamethasone, Depakote, Lovenox, Zetia, Lasix, Prevacid, Imodium, 80, melatonin, Zofran, potassium chloride, Flomax, guaifenesin oral solution. ALLERGIES: Include ATORVASTATIN and REMERON. MEDICAL HISTORY: A CVA, deep venous thrombosis, hypertension, seizure disorder, pulmonary embolism, real blastoma multiform, previous head injury. SURGICAL HISTORY: Unknown. SOCIAL HISTORY: Social history is apparently negative for tobacco, alcohol or illicit drug use. FAMILY HISTORY: Unknown. The patient only was seen here briefly way back in 2017 for some x-rays. The chest x-ray that was done in the emergency room shows an endotracheal tube which is 3 cm above the chris. There is an area of right upper lobe consolidation or collapse. There is also a left lower lobe infiltrate. The brain CT showed acute intraparenchymal hemorrhage in the right basal ganglia. There is also residual lesion in the left dominant region with surrounding vasogenic edema again noted, although much improved relative to the prior study. REVIEW OF SYSTEMS: Cannot be obtained. The patient is currently on the ventilator. His only complaint coming in was that of shortness of breath. PHYSICAL EXAMINATION: VITAL SIGNS: Current vital signs are reviewed. Temperature 98.2, heart rate 100, respiratory rate 20, blood pressure 127/84 mean 98, saturations are 95% on the ventilator. He appears in no acute distress. Currently sedated with propofol at 30 mcg/kg per minute. HEENT: Examination is grossly unremarkable. There is no orally placed endotracheal tube and NG tube. NECK: Supple. CARDIOVASCULAR: Examination reveals regular rhythm and rate. LUNGS: Reveal coarse rhonchi. Breath sounds are diminished. No wheezes or crackles. ABDOMEN: Soft. Bowel sounds are heard. EXTREMITIES Intact. No cyanosis, clubbing, or edema. SKIN is without rash. NEUROLOGIC: Examination cannot be adequately assessed given his current level of sedation. He is on the volume assist-control mode rate of 18, tidal volume is 400, FiO2 60% to be turned down to 40%, and PEEP of 5. Blood gases show a pO2 of 150, pCO2 of 36 and a pH of 7.47 on the FiO2 60%. He is on propofol at 3 mcg/kg/per minute, D5 of 0.9 at 100 mL an hour and a 0.9 IV KVO. LABORATORY VALUES: Include a white count of 8.3, hemoglobin 15.9, hematocrit 44.2, platelet count 140,000 PT/INR PTT normal. Blood gases have been noted already. Sodium potassium chloride CO2 all normal anion gap 14. BUN and creatinine were 21 and 0.63. The rest of his CMP or comprehensive metabolic profile is okay. Albumin 3.5. N terminal proBNP 69. Troponin less than 0.012. Urine is essentially negative for infection. Influenza studies were negative. Microbiology is negative. Chest x-ray has been reviewed as mentioned above. Current medications are reviewed. He is currently on Tylenol, chlorhexidine, IV fluids, Dilaudid, Narcan propofol and vancomycin. ASSESSMENT: 1. Recent diagnosis of DVT and pulmonary embolism. The patient with glioblastoma multiforme, who recently had a large intraparenchymal hemorrhage involving the right basal ganglia. 2. Previous left thalamic ischemic lesion, with surrounding vasogenic edema. 3. History of recent PE/DVT, previously on Lovenox. 4. Acute hypoxemic respiratory failure requiring intubation and mechanical ventilation on November 11. 5. History of cerebrovascular accident. 6. History of hypertension. 7. History of seizure disorder. 8. Previous history of head injury. PLAN: The patient is a DNR. The family is apparently considering comfort measures and withdrawing a life support. Additional recommendations and suggestions are forthcoming. Prognosis is poor. [facility] is call yesterday from the emergency room. They really did not give any additional advice or recommendations. They refused to take the patient in transfer. There is nothing more that can be according to them. The patient's overall prognosis is very poor. Will continue to follow as needed. MMODL / IJN: [id number] /
[2019-11-12] MEDS ORDERED: ONDANSETRON 4 MG/2 ML VIAL IVP PRN (11:15)
[2019-11-12] MEDS ORDERED: ARTIFICIAL TEARS-HYPROMELLOSE DROPS 15 ML BTL BOTH EYES PRN (11:15)
[2019-11-12] MEDS ORDERED: MORPHINE SULFATE 4 MG/ML SYRINGE IV PRN (11:15)
[2019-11-12] MEDS ORDERED: SCOPOLAMINE 1.5MG/72HR PATCH TRANSDERM SCH (11:15)
[2019-11-12] MEDS ORDERED: MORPHINE SULFATE 2 MG/ML SYRINGE IVP ONE (11:15)
[2019-11-12] MEDS ORDERED: MORPHINE SULFATE (100 MG/2 ML) 100 MG in SODIUM CHLORIDE 0.9% 100 ML IV SCH (11:15)
[2019-11-12] MEDS ORDERED: LORazepam 2 MG/ML INJ IV PRN (11:15)
[2019-11-12] MEDS ORDERED: ATROPINE OPHTH SOLN 1% 5ML BTL SUBLINGUAL PRN (11:15)
[2019-11-12] MEDS ORDERED: MORPHINE SULFATE 2 MG/ML SYRINGE IV PRN (11:15)
--- NOTE | 2019-11-12 15:20 | P.PN ---
Subjective Progress Note Date: 11/12/19 Patient is unresponsive, intubated, sedated. No seizure activity noted. Spoke to patient's sister on the phone. She informed me that patient has history of a stroke with right hemiparesis in February 2019. He also has history of glioblastoma involving the left thalamic region. His right hemiparesis has been quite significant. Now patient has developed left hemiparesis due to right basal ganglionic hemorrhage. Objective - Vital Signs Vital signs: Vital Signs Temp 98.2 F 11/12/19 08:00 Pulse 96 11/12/19 12:00 Resp 18 11/12/19 12:00 BP 91/58 11/12/19 12:00 Pulse Ox 95 11/12/19 12:00 Intake & Output 11/11/19 11/12/19 11/12/19 18:59 06:59 18:59 Intake Total 414.468 1452.014 788.926 Output Total 500 415 205 Balance -486.021 0676.014 583.926 Weight 79.742 kg 80 kg Intake: IV 200 1875 725 Dextrose 5%-0.9% NaCl 1, 200 1000 600 000 ml @ 100 mls/hr IV . Q10H [facility] Rx#:[id number] Vancomycin 1,500 mg In 875 125 Sodium Chloride 0.9% 250 ml @ 125 mls/hr IVPB ONCE ONE Rx#:[id number] Intake, IV Titration 0.518 144.014 63.926 Amount Morphine Sulfate (100 mg/ 1.887 2 ml) 100 mg In Sodium Chloride 0.9% 100 ml @ 1 MG/HR 1.02 mls/hr IV . Q24H [facility] Rx#:[id number] Propofol 1,000 mg In 0.518 Empty Bag 1 bag @ Titrate IV .Q0M ONE Rx#: [id number] Propofol 1,000 mg In 144.014 62.039 Empty Bag 1 bag @ Titrate IV .Q0M [facility] Rx#: [id number] Output: Urine 500 415 205 Uretheral (Ramirez) 250 Other: Voiding Method Indwelling Catheter Indwelling Catheter - Exam Deferred. As patient's family is considering comfort care. - Labs CBC & Chem 7: 11/11/19 12:33 11/11/19 12:33 Labs: Abnormal Lab Results - Last 24 Hours (Table) 11/11/19 11/12/19 Range/Units 17:33 05:16 ABG pH 7.47 H (7.35-7.45) ABG pO2 150 H (83-108) mmHg ABG HCO3 26 H (21-25) mmol/L ABG Total CO2 28 H (19-24) mmol/L ABG O2 Saturation 99.4 H (94-97) % POC Glucose (mg/dL) 153 H (75-99) mg/dL Microbiology - Last 24 Hours (Table) 11/11/19 12:33 Blood Culture - Preliminary Blood No Growth after 24 hours 11/12/19 01:18 Gram Stain - Preliminary Sputum Sputum Culture - Preliminary Assessment and Plan Assessment: * Acute right basal ganglionic hemorrhage, at least moderate size with some mass effect. * History of glioblastoma multiform, involving left hemispheric region, with chronic right hemiparesis. * History of DVT and PE. * Obesity. Plan: * Patient's prognosis appears poor based upon presence of bilateral hemiparesis (chronic right, and acute left side), and malignant brain tumor GBM. * Patient also has recent history of DVT and PE. Lovenox has been reversed with protamine sulfate. Patient is at risk of recurrent DVT. * Discussed with patient's sister in detail, informed about the prognosis. All of the questions were answered. * Patient's sister is inclined to words terminal weaning and comfort care. * Neurology will sign off.
[2019-11-12 19:25] VITALS: BP 86/54; PULSE 156; RESP 10
[2019-11-13] MEDS ORDERED: VANCOMYCIN TROUGH DUE 1 EACH MISC MISCELLANE ONE (05:00)
== END 2019-11-12 20:54 | disposition expired | DRG 64 ==
LOC: EEVIPCON 12:07 → EC 12:07 → 2SICU 16:01
PROVIDERS: ADMIT Internal Medicine; ATTEND Internal Medicine
PROC: 5A1935Z Respiratory Ventilation, Less than 24 Consecutive Hours (ICD-10-PCS; principal; 2019-11-11)
PROC: 0BH17EZ Insertion of Endotracheal Airway into Trachea, Via Natural or Artificial Opening (ICD-10-PCS; 2019-11-11)
DX: I61.0 Nontraumatic intracerebral hemorrhage in hemisphere, subcortical (principal); J96.01 Acute respiratory failure with hypoxia; G93.6 Cerebral edema; A41.9 Sepsis, unspecified organism; J18.9 Pneumonia, unspecified organism; C71.0 Malignant neoplasm of cerebrum, except lobes and ventricles; G81.94 Hemiplegia, unspecified affecting left nondominant side; I27.82 Chronic pulmonary embolism; I82.509 Chronic embolism and thrombosis of unspecified deep veins of unspecified lower extremity; I69.351 Hemiplegia and hemiparesis following cerebral infarction affecting right dominant side; Y95 Nosocomial condition; Z66 Do not resuscitate; Z51.5 Encounter for palliative care; E66.9 Obesity, unspecified; Z68.30 Body mass index [BMI] 30.0-30.9, adult; G40.909 Epilepsy, unspecified, not intractable, without status epilepticus; I10 Essential (primary) hypertension; Z79.01 Long term (current) use of anticoagulants; Z79.899 Other long term (current) drug therapy; Z87.828 Personal history of other (healed) physical injury and trauma; Z88.8 Allergy status to other drugs, medicaments and biological substances
CPT/HCPCS: 31500; 36415; 36600; 70450; 71045; 80053; 81003; 82803; 82805; 83605; 83735; 83880; 84484; 85025; 85610; 85730; 87040; 87070; 87077; 87186; 87205; 87502; 93005; 94002; 94003; 94640; 96361; 96365; 96367; 96375; 99291; 99292